=== PATIENT | female | born 1950 | race Caucasian/White ===

== ENCOUNTER 2016-08-03 19:38 | Inpatient (IN) | payer MEDICARE ==
[2016-08-03] MEDS ORDERED: HYDROCODONE-APA1 TAB PO (20:08)
[2016-08-03] MEDS ORDERED: SINGULAIR10 MG PO (20:09)
[2016-08-03] MEDS ORDERED: LIDEX 0.05% OIN15 GM TOPICAL (20:10)
[2016-08-03] MEDS ORDERED: TRAZODONE HCL50 MG PO (20:10)
[2016-08-03] MEDS ORDERED: ADVAIR HFA 230-12 GM INH (20:11)
[2016-08-03] MEDS ORDERED: LIPITOR20 MG PO (20:11)
[2016-08-03] MEDS ORDERED: LEVOTHYROXINE100 MCG PO (20:12)
[2016-08-03] MEDS ORDERED: ABILIFY10 MG PO (20:14)
[2016-08-03] MEDS ORDERED: IBUPROFEN400 MG PO (20:15)
[2016-08-03] MEDS ORDERED: PROZAC20 MG PO (20:16)
[2016-08-03] MEDS ORDERED: BUPROPION HCL100 MG PO (20:17)
[2016-08-03] MEDS ORDERED: VENTOLIN HFA18 GM INH (20:20)
[2016-08-03] MEDS ORDERED: MELATONIN5 MG PO (20:21)
[2016-08-03] MEDS ORDERED: BAYER CHEWABLE81 MG PO (20:22)
[2016-08-03] MEDS ORDERED: ACETAMINOPHEN500 M1 PO (20:22)
[2016-08-03 22:27] VITALS: BP 120/73
[2016-08-03 22:34] VITALS: BP 120/73
--- NOTE | 2016-08-04 00:41 | NUR ---
Patient admitted form [facility] via ambulance admitted to Dr. Sorto/[facility]. Patient lives at home, and suffers from chronic pain related to bilateral knee and lower back. Patient states that chronic pain has caused her to say things she shouldn't have. Family brought patient to the ER because she had requested a gun for the past two days to shoot herself in the head. Patient also states that she suffers from chronic depression and anxiety. During interview at [facility] ed, patient stated "I don't want to live like this anymore" resulting into transfer to [facility]. Patient was also found to have a UTI and was given a shot of Rocephin before transfer. Recently insurance change caused non-coverage of prescribed medication Abilify, resulting in patient stopping medication 3 days ago. Patient was recieved via strecher accompanied by EMS staff. Family is aware of her admission, patient is her own guardian.
--- NOTE | 2016-08-04 00:52 | NUR ---
Patient oriented to self, place, time and situation. She is calm and pleasant, denies suicidal ideation. She is wanting to be discharged.
[2016-08-04 02:28] LABS: APPEARANCE HAZY (CLEAR); BILIRUBIN NEGATIVE (NEGATIVE); COLOR YELLOW (YELLOW); GLUCOSE NEGATIVE (NEGATIVE); KETONE NEGATIVE (NEGATIVE); LEUKOCYTE ESTERASE 2+ (NEGATIVE); NITRITE NEGATIVE (NEGATIVE); PH 5.5 (5.0-6.0); PROTEIN TRACE mg/dL (NEGATIVE); UROBILINOGEN NORMAL (NORMAL)
[2016-08-04 02:32] LABS: BACTERIA MODERATE /hpf (NONE SEEN); EPITHELIAL CELLS 0-5 /hpf (0-5); RED CELLS - URINE OCC /hpf (0-5); WHITE CELLS - URINE >50 /hpf (0-5)
[2016-08-04 06:59] LABS: BASOPHILS 0.1 % (0.0-2.0); EOSINOPHILS 0.5 % (0-7); HEMATOCRIT 37.5 % (36.0-48.0); HEMOGLOBIN 12.4 g/dL (12-16); IMMATURE GRANULOCYTES 0.2 % (0-5); LYMPHOCYTES 9.2 % (15-50); MCH 30.7 pg (26.0-34.0); MCHC 33.1 g/dL (31.0-37.0); MCV 92.8 fL (80.0-100.0); MEAN PLATELET VOLUME 10.1 fL (7.4-10.4); MONOCYTES 10.2 % (2-11); NEUTROPHILS 79.8 % (40-80); PLATELET COUNT 257 10x3/uL (130-400); RBC 4.04 10x6/uL (4.00-5.40); RDW 14.2 % (11.5-14.5); WBC 10.5 10x3/uL (4.8-10.8)
[2016-08-04 07:24] LABS: HEMOGLOBIN A1C 6.1 % (4.8-6.0)
[2016-08-04 07:37] LABS: ALBUMIN 3.1 g/dL (3.4-5.0); BILIRUBIN - TOTAL 0.5 mg/dL (0.2-1.3); CALCIUM 8.9 mg/dL (8.5-10.1); CARBON DIOXIDE 27.1 mmol/L (21.0-32.0); CHOL - HDL RATIO 2.5 ratio (2.3-4.1); CREATININE - SERUM 0.9 mg/dL (0.6-1.3); LDL-HDL RATIO 1.2 ratio (1.5-3.5); POTASSIUM - SERUM 4.1 mmol/L (3.5-5.1); PROTEIN - SERUM 6.8 g/dL (6.4-8.2)
[2016-08-04 08:44] VITALS: BP 103/62
--- NOTE | 2016-08-04 09:45 | NUR ---
B.) Alert and oriented times four, states she is mad because " my daughter put me here, she always making a mountain out of a mole hill." states she really was not going to hurt herself," doesn't every body say something like that every once in a while." No plan, and denies any suicidial ideation. I.) Administer medication and monitor compliance. Monitor for any suicidial ideations and signs of depression. Encourage verbalization of feelings and provide one on one time. Enourage group participation and socilization. Contract for safety and monitor safety. R.) Medications to be reconciled, patient using ice pack to manage pain, tearful stating " aw, manpreet her, she gets to go I'm stuck here." verbalizes she wants to go home because nothing is wrong. Educated patient on reason for hospitalization and plan of care, sat on sofa and did settle down and started conversing with staff, and gigles at times. Contracted for no self harm. P.) Continue plan of care.
[2016-08-04 09:55] VITALS: Ht 152.4 cm
--- NOTE | 2016-08-04 10:00 | NUR ---
Spoke with patient daughter , inquired about patient procedure and appointment she had for today for follow up. She states patient had an orthoscopic procedure on 07/21/16, follow for today to remove sutures left knee where canceled due to hospitaization, she will reschedule when patient discharged, she also canceled her outpatient physical therapy with [facility] for this week. Called Dr. Segundo Yen office and left message regarding if we need to remove sutures, if any physical therapy order needed and if so any restrictions call back number left.
--- NOTE | 2016-08-04 11:02 | NUR ---
Received call back from Dr. Segundo Yen physician assistant psychiatry daryl Hawk for removal of sutures today, may order Physical therapy and apply ice to knee as need for pain.
[2016-08-04 20:00] VITALS: BP 110/68
--- NOTE | 2016-08-04 23:47 | NUR ---
B) Recieved patient in the day room, ambulates independantly, alert and oriented X 4, calm and cooperative with assessment and care, I) Adinistered perscribed medications, contracted for safety, R) medication compliant, no S.I. this shift, P) Continue plan of care, continue to monitor.
[2016-08-05 06:14] LABS: RAPID PLASMA REAGIN Non Reactive (Non Reactive)
[2016-08-05 09:05] VITALS: BP 100/62
[2016-08-05 10:23] LABS: VITAMIN D 25 HYDROXY 32.2 ng/mL (30.0-100.0)
--- NOTE | 2016-08-05 14:07 | NUR ---
(B)RECEIVED PATIENT SITTING IN A CHAIR AT THE NURSE'S STATION. ORIENTED X3. RELATES THE REASON FOR HOSPITALIZATION "I GUESS I HAD SOMEWHAT OF A MELTDOWN AND SAID I WANTED TO HURT MYSELF." WHEN PATIENT WAS ASKED IF SHE HAD A PLAN SHE INFORMED NURSE SHE DID NOT HOWEVER IT HAD BEEN REPORTED SHE HAD BEEN ASKING FOR A GUN TO SHOOT HERSELF FOR 2 DAYS PRIOR TO ADMISSION. CHRONIC KNEE PAIN AND IS POST SCOPE. INTERACTS WHEN APPROACHED HOWEVER DOES NOT INITIATE CONVERSATION. (I)ADMINISTER MEDS AND MONITOR COMPLIANCE. OBTAIN VERBAL NO HARM CONTRACT. (R)MED COMPLIANT. CONTRACTS VERBALLY THAT SHE WILL NOT HARM SELF WHILE HOSPITALIZED. COOPERATIVE WITH [facility]. (P)CONTINUE POC AND MAINTAIN FALL PRECAUTIONS.
--- NOTE | 2016-08-05 14:31 | HP ---
PATIENT: JARRED BAER MEDICAL RECORD: [id number] ACCOUNT: [id number] LOCATION:[facility] : 46 ADMISSION DATE: 08/03/16 HISTORY AND PHYSICAL EXAMINATION Psychiatric Evaluation IDENTIFYING DATA: The patient is 66 years old and she is admitted to the hospital on a voluntary basis secondary to suicidal thoughts. CHIEF COMPLAINT: Depression. HISTORY OF PRESENT ILLNESS: The patient presented to the Emergency Room at [facility] yesterday. At that time, she was reporting depressive symptoms with suicidal intent. The patient very much denies this now. She says that she never said any such thing and only said that she has lots of stress in her life and sometimes wishes she were . I find this to be completely inconsistent with the sort of reaction the Emergency Room have and all the history I have gotten since yesterday. The patient quickly follows that up saying she wants to be discharged as soon as possible. This ____ with the predicament of not knowing if the patient is suicidal and simply trying to leave the hospital, so she can kill herself or if she is a person who made a statement that she really does not mean and now is wanting to retract it. The patient is endorsing numerous vegetative depressive symptoms and personal stressors. She denies that she would seek to harm herself or others at this time. She is denying psychotic symptoms and substance abuse issues. PAST MEDICAL HISTORY: Significant for diabetes, hypercholesterolemia, and COPD. PAST PSYCHIATRIC HISTORY: Negative for the patient ever trying to harm herself. She does say that she seen a psychiatrist on an outpatient basis for many years in multiple states and that Abilify has been the medication that helped her the most. She says that she was recently taken off of that because she was told she did not have a diagnosis that supported it. The patient has a long history of chaotic dysfunctional interpersonal relations with divorce and difficulty and a number of complex. She denies substance abuse issues and is actively seen by Dr. Carter at [facility]. FAMILY HISTORY: Unknown. SOCIAL HISTORY: The patient is . She has 3 adult children. She is a retired educator with a Ph.D. in Education. She has no history of drug or alcohol abuse. MENTAL STATUS EXAMINATION: The patient is awake, alert and oriented to person, place, time and situation. Her mood is depressed. Her affect is appropriate. Thought processes are disorganized and somewhat circumstantial. She denies psychotic symptoms as well as thoughts of harming herself or others. ASSETS: Supportive family members. LIABILITIES: Limited insight. DIAGNOSTIC IMPRESSION: AXIS I: Major depression, severe, recurrent without psychotic features. 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 AXIS III: Chronic obstructive pulmonary disease, hypothyroidism, and questionable diabetes. AXIS IV: Moderate stressors. AXIS V: Global assessment of functioning is 30. PLAN: At this time, the patient is admitted to the hospital secondary to suicidal thoughts with a plan. She will be comprehensively evaluated and treated with both mood stabilizing and antidepressant medications as deemed appropriate. I think her long-term prognosis is guarded. TRANSINT:[id number] Voice Confirmation ID: [id number] DOCUMENT ID: [id number] ADRIANE BERNABE MD at 1431 CC: [id number] DICTATION DATE: 08/04/16 1427 STAINED GLASS JOINER: 08/04/16 1540 [facility] [address] [place] [address]
[2016-08-05] MEDS ORDERED: LEVAQUIN750 MG PO (14:50)
[2016-08-05] MEDS ORDERED: LEVOXYL100 MCG PO (14:51)
[2016-08-05] MEDS ORDERED: FLORANEX / LACT1 TAB PO (14:51)
--- NOTE | 2016-08-05 17:10 | NUR ---
DISCHARGED HOME WITH FAMILY MEMBER PER PRIVATE VEHICLE. VERBAL AND WRITTEN DISCHARGE INSTRUCTIONS GIVEN TO PATIENT. PERSONAL BELONGINGS RETURNED TO PATIENT. CONDITION STABLE AT TIME OF DISCHARGE.
--- NOTE | 2016-08-09 14:58 | PN ---
PATIENT:JARRED BAER MEDICAL RECORD: [id number] LOCATION:[facility] ADMISSION DATE: 08/03/16 PROGRESS NOTE DATE OF SERVICE: 08/05/2016 SUBJECTIVE: The patient's case was discussed with staff. She has no new complaint. OBJECTIVE: The patient is in good behavioral control with limited insight about her condition. She tolerates her medicines reasonably well. She has a euthymic mood and no thoughts of self-harm. She is asking to go home. TRANSINT:[id number] Voice Confirmation ID: [id number] DOCUMENT ID: [id number] ADRIANE BERNABE MD at 1458 CC: [id number] DICTATION DATE: 08/05/16 1449 ADVERTISING COORDINATOR: 08/05/162056 DIS IN 08/05/16 [id number] [place] [address]
--- NOTE | 2016-08-13 13:38 | DS ---
PATIENT:JARRED BAER :46 MEDICAL RECORD: [id number] DISCHARGE SUMMARY ADMISSION DATE: 08/03/16 DISCHARGE DATE: 08/05/16 Psychiatric Discharge Summary IDENTIFYING DATA: The patient is 66 years old and she is admitted to the hospital on a voluntary basis secondary to suicidal thoughts. The patient presented to the Emergency Room and stating that she was depressed and had suicidal intent. At the time I interviewed her, she denied it. The concern was that she indicated that she never said any such thing. It is quite a bit different than saying I said something I really did not mean and was just upset. Now, she is putting me in a position of knowing that Emergency Room would not just make this up and wondering if she is wanting to just leave and hurt herself or if she is just too embarrassed to tell me the truth. Obviously, there is an inconsistency here that required at least at day or two of hospitalization to observe her and ensure that she is safe. She did endorse numerous neurovegetative depressive symptoms and stressors. I do not think there is any doubt that she is depressed. The issue was whether or not she was dangerous. HOSPITAL COURSE: The patient was admitted to the hospital and fully evaluated from both a medical, psychological, and social standpoint. She was given antidepressant medication. She was observed and found not to be actively suicidal. She was transitioned out of the hospital and referred to day treatment program. DISCHARGE DIAGNOSES: AXIS I: Major depression. AXIS II: Probable cluster B personality disorder. AXIS III: Chronic obstructive pulmonary disease, hypothyroidism and questionable diabetes. AXIS IV: Moderate stressors. AXIS V: Global assessment of functioning is 40. PLAN: At the time of discharge, the patient was in good behavioral control and not actively suicidal. I do think she is significantly and seriously depressed and I am pleased that she is going to follow up with a day treatment program that will involve her in a counseling and day activity program for 4 or 5 days a week. I think that will go a long way towards ensuring her safety. Her long-term prognosis is guarded. TRANSINT:[id number] Voice Confirmation ID: [id number] DOCUMENT ID: [id number] ADRIANE BERNABE MD at 1338 CC: [id number] DICTATION DATE: 08/12/16 1237 LENS GENERATING MACHINE TENDER: 08/13/16 0021 DIS IN 08/05/16 [facility] [address] [facility] [place] [address]
== END 2016-08-05 17:10 | disposition home or self-care (01) | DRG 885 ==
LOC: D.PSYCH 19:38
PROVIDERS: ADMIT Psychiatry & Neurology Psychiatry
DX: F33.9 Major depressive disorder, recurrent, unspecified (principal); N39.0 Urinary tract infection, site not specified; F41.9 Anxiety disorder, unspecified; G47.00 Insomnia, unspecified; M19.90 Unspecified osteoarthritis, unspecified site; E11.9 Type 2 diabetes mellitus without complications; E03.9 Hypothyroidism, unspecified; E78.5 Hyperlipidemia, unspecified; J44.9 Chronic obstructive pulmonary disease, unspecified; F60.9 Personality disorder, unspecified

== ENCOUNTER 2018-12-12 14:31 | Emergency (ER) | payer MEDICARE, BC ==
[~2018-12-12] VITALS: Ht 152.4 cm; Wt 72.7 kg
[~2018-12-12 14:31] MED LIST: ABILIFY10 MG PO; ACETAMINOPHEN500 M1 PO; ADVAIR HFA 230-12 GM INH; BAYER CHEWABLE81 MG PO; BUPROPION HCL100 MG PO; FLORANEX / LACT1 TAB PO; HYDROCODONE-APA1 TAB PO; IBUPROFEN400 MG PO; LEVAQUIN750 MG PO; LEVOTHYROXINE100 MCG PO; LEVOXYL100 MCG PO; LIDEX 0.05% OIN15 GM TOPICAL; LIPITOR20 MG PO; MELATONIN5 MG PO; PROZAC20 MG PO; SINGULAIR10 MG PO; TRAZODONE HCL50 MG PO; VENTOLIN HFA18 GM INH
[2018-12-12 14:42] VITALS: BP 156/62; Ht 152.4 cm; Wt 72.7 kg
[2018-12-12] MEDS ORDERED: KLOR-CON M2020 MEQ PO (14:45)
[2018-12-12] MEDS ORDERED: FUROSEMIDE20 MG PO (14:46)
[2018-12-12] MEDS ORDERED: VITAMIN D31000 UNIT PO (14:46)
[2018-12-12] MEDS ORDERED: LIPITOR20 MG PO (14:46)
[2018-12-12] MEDS ORDERED: VITAMIN C500 M1 PO (14:46)
[2018-12-12] MEDS ORDERED: MELATONIN5 MG PO (14:46)
[2018-12-12 15:21] LABS: BASOPHILS 0.3 % (0-2); EOSINOPHILS 1.6 % (0-7); HEMOGLOBIN 13.4 g/dL (12-16); IMMATURE GRANULOCYTES 0.1 % (0-5); LYMPHOCYTES 29.3 % (15-50); MCH 30.3 pg (26.0-34.0); MCHC 33.5 g/dL (31.0-37.0); MCV 90.5 fL (80.0-100.0); MEAN PLATELET VOLUME 10.5 fL (7.4-10.4); MONOCYTES 11.5 % (2-11); NEUTROPHILS 57.2 % (40-80); PLATELET COUNT 267 10x3/uL (130-400); RBC 4.42 10x6/uL (4.00-5.40); RDW 13.7 % (11.5-14.5)
[2018-12-12 16:04] LABS: APPEARANCE CLEAR (CLEAR); BILIRUBIN NEGATIVE (NEGATIVE); COLOR YELLOW (YELLOW); GLUCOSE NEGATIVE (NEGATIVE); KETONE NEGATIVE (NEGATIVE); NITRITE NEGATIVE (NEGATIVE); PROTEIN NEGATIVE (NEGATIVE); SPECIFIC GRAVITY 1.015 (1.005-1.020); UROBILINOGEN NORMAL (NORMAL)
[2018-12-12 16:08] LABS: UDS - AMPHET NEGATIVE QUAL (NEGATIVE); UDS - BARB NEGATIVE QUAL (NEGATIVE); UDS - BENZO NEGATIVE QUAL (NEGATIVE); UDS - COCAINE NEGATIVE QUAL (NEGATIVE); UDS - OPIATE NEGATIVE QUAL (NEGATIVE); UDS - PCP NEGATIVE QUAL (NEGATIVE); UDS - THC NEGATIVE QUAL (NEGATIVE)
[2018-12-12 16:38] LABS: ALBUMIN 3.6 g/dL (3.4-5.0); ANION GAP 15.7 mmol/L (8-16); BILIRUBIN - TOTAL 0.56 mg/dL (0.2-1.3); CALCIUM 9.1 mg/dL (8.5-10.1); CARBON DIOXIDE 24.3 mmol/L (21.0-32.0); CREATININE - SERUM 1.1 mg/dL (0.6-1.3); PROTEIN - SERUM 7.1 g/dL (6.4-8.2)
[2018-12-12 16:48] LABS: T4 THYROXINE 12.1 ug/dL (4.7-13.3); THYROID STIMULATING HORMONE 0.01 uIU/mL (0.36-3.74)
--- NOTE | 2018-12-12 16:58 | NUR ---
DR BERNABE NOTIFIED AND REVIEWED PT'S BEHAVIOR AND ASSESSMENT RESULTS. PT IS A LOW RISK PER DR BERNABE. DR BERNABE STATED TO GIVE RESOURCES TO PT AT TIME OF DISCHARGE. NO FURTHER ORDERS AT THIS TIME. RESOURCES REVIEWED WITH PT AND SHE VERBALIZED UNDERSANDING.
== END 2018-12-12 17:28 | disposition home or self-care (01) ==
LOC: D.ER 14:31 → EDBD 14:31 → D.ER 17:28
PROVIDERS: Family Medicine
DX: F32.9 Major depressive disorder, single episode, unspecified (principal); Z91.19 Patient's noncompliance with other medical treatment and regimen; I50.9 Heart failure, unspecified; E78.5 Hyperlipidemia, unspecified; J44.9 Chronic obstructive pulmonary disease, unspecified; F17.210 Nicotine dependence, cigarettes, uncomplicated